=== PATIENT | male | born 1940 | race Caucasian/White ===

== ENCOUNTER 2016-12-28 07:27 | Day surgery (SDC) | payer BC ==
[2016-12-27 13:47] VITALS: BMI 24.7
[2016-12-28] MEDS ORDERED: MIDAZOLAM HCL 2 MG/2 ML SINGLE DOSE VIAL ONE ×2 (08:57→09:19)
[2016-12-28] MEDS ORDERED: PROPOFOL 20 ML ONE ×2 (08:58)
[2016-12-28] MEDS ORDERED: SUCCINYLCHOLINE CHLORIDE 200 MG/10 ML VIAL ONE (08:58)
[2016-12-28] MEDS ORDERED: ceFAZolin SODIUM 1 GM VIAL IVPB ONE (09:15)
[2016-12-28] MEDS ORDERED: ceFAZolin SODIUM 1 GM VIAL ONE (09:18)
[2016-12-28] MEDS ORDERED: GENTAMICIN SO4 80 MG/2 ML VIAL IVPB ONE (09:20)
[2016-12-28] MEDS ORDERED: GENTAMICIN SO4 80 MG/2 ML VIAL ONE (09:21)
[2016-12-28] MEDS ORDERED: oxyCODONE HCL 5 MG TABLET PO PRN (10:21)
--- NOTE | 2016-12-28 10:25 | OP ---
Operative Note - Note: Operative Date: 12/28/16 Pre-Operative Diagnosis: BPH, bladder stones Operation: cysto/laser litho bladder stones, bipolar TURVP Findings: Trilobar prostate hyperplasia, bladder stones (large) multiple Post-Operative Diagnosis: Same as Pre-op Surgeon: Jean-Claude Miguel Anesthesia: Spinal Specimens Removed: stones Estimated Blood Loss (mls): 25 Operative Report Dictated: Yes
[2016-12-28] MEDS ORDERED: ELECTROLYTE-148 SOLN 1,000 ML IV SCH (10:30)
[2016-12-28 11:23] VITALS: TEMP 97.6
[2016-12-28 13:07] VITALS: BP 140/78; PULSE 72
--- NOTE | 2016-12-28 13:33 | OP ---
DATE OF OPERATION: 12/28/2016 PREOPERATIVE DIAGNOSIS: Benign prostatic hypertrophy and bladder stones. POSTOPERATIVE DIAGNOSIS: Benign prostatic hypertrophy and bladder stones. PROCEDURE PERFORMED: Cystoscopy, laser lithotripsy of bladder stones and partial transurethral vaporization of prostate. SURGEON: Mason Mejía MD INDICATIONS: The patient is a 76-year-old male with recurrent bladder stones. He was treated partially in the past with stones, scheduled for repeat laser lithotripsy of stones and repeat partial TURP. With discussed the risk of bleeding, infection, impotence, incontinence, scar tissue formation, need for additional procedures due to very large prostate, however, he understood this and elected to undergo this fashion as opposed to an open prostatectomy. PROCEDURE IN DETAIL: The patient was taken to the OR and placed supine on the operating table. cabin worker administered and spinal anesthesia was given. He was prepped and draped in the dorsal lithotomy position. He was given 1 g of Ancef and 80 mg of gentamicin. The resectoscope was inserted into the urethra without difficulty. Anterior urethra was normal. Prostatically, it was 4 cm and visually occlusive with an enlarged medium bar with evidence of partial TURP. At this point multiple stones were noted in the bladder. Attention was turned to the stones. The stones ere pulverized into fine dust and 3-4 mm fragments with a . All stone fragments were removed and sent to Pathology for analysis. At this point then using the Olympus bipolar loop the median lobe tissue was vaporized until an open channel was created. All bleeding sites were fulgurated. Resectoscope was then removed and a 24-Wolof Gautam was then placed to straight drainage. [place]-tinged urine was retrieved. The patient was then woken from anesthesia and transferred to the recovery in stable condition. There were no complications. ESTIMATED BLOOD LOSS: Minimal. MASON MEÍJA M.D. [id number]
--- NOTE | 2016-12-29 08:34 | PATH ---
Surgical Pathology Report Patient Name: ARIADNE GEE [facility]. Rec. #: [id number] /Age/Gender: 1940 (Age: 76) / M Account: [id number] Location: [facility] SURGICAL Taken: 12/28/2016 Received: 12/28/2016 Reported: 12/29/2016 Physicians: Jean-Claude Miguel M.D. Specimen(s) Received BLADDER STONE Clinical History BPH, LUTS, bladder stone Final Diagnosis BLADDER STONE, EXTRACTION: CALCULI SUBMITTED FOR CHEMICAL ANALYSIS (gross only). Electronically Signed Von Sharma M.D. Gross Description Received fresh labeled "bladder stone," is a 1.2 x 1.2 x 0.4 cm aggregate of العلي, irregular to fragmented calculi which are sent for chemical analysis. /12/28/201612/28/2016
== END 2016-12-28 13:10 | disposition home or self-care (01) ==
LOC: JASU-SURG 07:27
PROVIDERS: ATTEND Urology
PROC: 0TCB8ZZ Extirpation of Matter from Bladder, Via Natural or Artificial Opening Endoscopic (ICD-10-PCS; principal; 2016-12-28 09:00)
PROC: 0VT08ZZ Resection of Prostate, Via Natural or Artificial Opening Endoscopic (ICD-10-PCS; 2016-12-28 09:00)
PROC: 0TJB8ZZ Inspection of Bladder, Via Natural or Artificial Opening Endoscopic (ICD-10-PCS; 2016-12-28 09:00)
DX: N40.1 Benign prostatic hyperplasia with lower urinary tract symptoms (principal); N21.0 Calculus in bladder
CPT/HCPCS: 36415; 82360; 88300-TC; 94760

== ENCOUNTER 2018-12-26 21:30 | Emergency (ER) | payer BC ==
[2018-12-26 22:02] VITALS: BP 136/78; PULSE 89; TEMP 99.2; BMI 24.7
--- NOTE | 2018-12-26 22:16 | PDOC ---
Documentation entered by Lesli Whitaker SCRIBE, acting as scribe for Laisha Trinidad MD. Laisha Trinidad MD: This documentation has been prepared by the [place] [employer], SCRIBE, under my direction and personally reviewed by me in its entirety. I confirm that the documentation accurately reflects all work, treatment, procedures, and medical decision making performed by me. History of Present Illness - General Chief Complaint: Urinary Problem Stated Complaint: URINARY RETENTION Time Seen by Provider: 12/26/18 21:43 History Source: Patient Exam Limitations: No Limitations - History of Present Illness Initial Comments: 12/26/18 21:58 The patient is a 78 year old male with a significant past medical history of prostate ca, hypertension, hyperlipidemia and chronic low back pain who presents to the emergency department with urinary retention since earlier today. The patient states that he has had an ongoing issue with urinary retention by which he had a reyes in place for the past 10 days. He states that today, he has a cystoscopy procedure done by which there were notes stones. The patient states that the reyes was not placed back in and he has been unable to urinate since. He states that he came to the ED to get a reyes placed so he can get some relief. The patient denies any fever, chills, nausea, vomiting, diarrhea, constipation or other urinary symptoms. He denies any chest pain, shortness of breath, headache or dizziness. The patient denies any other complaints. PAST MEDICAL HISTORY: prostate ca, hypertension, hyperlipidemia and chronic low back pain PAST SURGICAL HISTORY: no significant history FAMILY HISTORY: no pertinent history SOCIAL HISTORY: Pt lives with family and is employed. MEDICATIONS: reviewed ALLERGIES: As per nursing notes General: No fevers or chills, no weakness, no weight loss HEENT: No change in vision. No sore throat,. No ear pain CardioVascular: No chest pain or shortness of breath Respiratory:No cough, or wheezing. Gastrointestinal: no nausea, vomiting, diarrhea or constipation, No rectal bleeding Genitourinary: (+) urinary retention. No dysuria, hematuria, or frequency Musculoskeletal: No joint or muscle pain or swelling Neurologic: No headache, vertigo, dizziness or loss of consciousness Psychiatric: nor depression Skin: No rashes or easy bruising Endocrine: no increased thirst or abnormal weight change Allergic: no skin or latex allergy All other systems reviewed and normal GENERAL: The patient is awake, alert, and fully oriented, in no acute distress. HEAD: Normal with no signs of trauma. EYES: Pupils equal, round and reactive to light, extraocular movements intact, sclera anicteric, conjunctiva clear. Abdomen: (+)Exam post reyes insertion. No abdominal or suprapubic tenderness. No flank pain. Soft, nondistended, normal bowel sounds. EXTREMITIES: Normal range of motion, no edema. NEUROLOGICAL: Normal speech, normal gait. No CVA tenderness. PSYCH: Normal mood, normal affect. SKIN: Warm, Dry, normal turgor, no rashes or lesions noted. 12/26/18 22:14 Assessment and plan: This is a 78-year-old male who comes in complaining of urinary retention. Patient had a Reyes placed with approximately 1300 mL or urine. Patient is already on Bactrim. Patient discharged home with a leg bag will follow-up with his urologist in the morning 12/26/18 22:14 Past History - Past Medical History Allergies/Adverse Reactions: Allergies Allergy/AdvReac Type Severity Reaction Status Date / Time No Known Drug Allergies Allergy Verified 12/27/16 13:51 Home Medications: Ambulatory Orders Cholecalciferol (Vitamin D3) [Vitamin D3] 2,000 unit PO DAILY 08/11/15 Red Yeast Rice 600 mg PO DAILY 08/11/15 [place]-3/Dha/Epa/Fish Oil [Fish Oil 1,000 mg Softgel] 1,000 mg PO DAILY 12/27/16 Sulfamethoxazole/Trimethoprim [Bactrim Ds Tablet] 1 each PO BID 12/26/18 Anemia: No Asthma: No Cancer: Yes (PROSTATE) Cardiac Disorders: (AORTIC ROOT DILATION) CVA: No COPD: No Dementia: No Diabetes: No GI Disorders: No Disorders: No HTN: Yes ("NOT TAKING MEDS") Hypercholesterolemia: Yes ("NOT TAKING MEDS") Liver Disease: No Seizures: No Thyroid Disease: No - Surgical History Abdominal Surgery: Yes (HERNIA REPAIR A CHILD) - Immunization History Immunization Up to Date: Yes - Suicide/Smoking/Psychosocial Hx Smoking History: Never smoked Have you smoked in the past 12 months: No Hx Alcohol Use: Yes (WINE DAILY) Drug/Substance Use Hx: No Substance Use Type: Alcohol Hx Substance Use Treatment: No *Physical Exam - Vital Signs Last Vital Signs Temp Pulse Resp BP Pulse Ox 99.2 F 89 16 136/78 95 12/26/18 21:31 12/26/18 21:31 12/26/18 21:31 12/26/18 21:31 12/26/18 21:31 *DC/Admit/Observation/Transfer Diagnosis at time of Disposition: Urinary retention, Prostate enlargement - Discharge Dispostion Disposition: HOME Condition at time of disposition: Good Decision to Admit order: No - Referrals Referrals: Jean-Claude Miguel MD [Primary Care Provider] - - Patient Instructions Additional Instructions: Continue your antibiotics as prescribed. Call your urologist in the morning and see if your urologist wants you to take the antibiotics beyond the 2 doses you were given. Return to the emergency department immediately with ANY new, persistent or worsening symptoms. Continue any medications as previously prescribed by your physician. You should follow up with your primary doctor as soon as possible regarding today's emergency department visit. . Please make sure your doctor reviews the results of your emergency evaluation. Thank you for coming to the Emergency Department today for your care. It was a pleasure to see you today. Please note that your evaluation is INCOMPLETE until you follow-up with your doctor. - Post Discharge Activity
== END 2018-12-26 22:20 | disposition home or self-care (01) ==
LOC: FER 21:30
PROC: 0T9B70Z Drainage of Bladder with Drainage Device, Via Natural or Artificial Opening (ICD-10-PCS; principal; 2018-12-26)
DX: R33.9 Retention of urine, unspecified (principal); N40.0 Benign prostatic hyperplasia without lower urinary tract symptoms; I10 Essential (primary) hypertension; E78.5 Hyperlipidemia, unspecified; M54.5 Low back pain; G89.29 Other chronic pain; Z85.46 Personal history of malignant neoplasm of prostate
CPT/HCPCS: 81003; 81015; 87086; 87186; 99283-25

== ENCOUNTER 2019-01-03 13:16 | Inpatient (IN) | payer BC ==
--- NOTE | 2019-01-03 13:21 | PDOC ---
Rapid Medical Evaluation Medical Evaluation: Allergies Allergy/AdvReac Type Severity Reaction Status Date / Time No Known Drug Allergies Allergy Verified 12/26/18 22:16 01/03/19 13:19 HPI: Hematuria from indwelling reyes PE: ambulates, no gross deficits ORDERS: CBC, CMP, Coagulation studies, Type and Screen. Discharge Disposition - Diagnosis Gross hematuria - Referrals - Patient Instructions - Post Discharge Activity
[2019-01-03 14:20] LABS: BASO % 1.2 % (0-2.0); EOS % 0.1 % (0-4.5); HEMATOCRIT 36.8 % (35.4-49); HEMOGLOBIN 12.5 GM/dL (11.7-16.9); LYMPH % 9.7 % (8-40); MCH 32.2 pg (25.7-33.7); MEAN CELL VOLUME 94.8 fl (80-96); MEAN PLT VOLUME 7.9 fl (7.5-11.1); MONO % 6.8 % (3.8-10.2); NEUT % 82.2 % (42.8-82.8); PLATELET COUNT 231 K/MM3 (134-434); RBC 3.88 M/mm3 (4.00-5.60); RDW 17.4 % (11.9-15.9)
--- NOTE | 2019-01-03 14:21 | PDOC ---
History of Present Illness - General Chief Complaint: Pain Stated Complaint: Urinary Catheter Problem Time Seen by Provider: 01/03/19 13:21 - History of Present Illness Initial Comments: Mr. Liz is a 78 y/o M with hx HTN, HLD, prostate cancer presenting with gross hematuria from his indwelling reyes catheter as well as urinary obstruction since 1100 today. He reports 10/10 pain and pressure in his bladder. He reports that he has had urinary obstructions in the past, and that those times they have needed to replace the reyes. He is follow by urology (Dr. Turner) and is scheduled for bladder stone removal surgery next week. He denies any fever, chills, change in appetite, nausea, vomiting, fatigue, night sweats, dysuria, shortness of breath, chest pain. Past History - Travel Traveled outside of the country in the last 30 days: No - Past Medical History Allergies/Adverse Reactions: Allergies Allergy/AdvReac Type Severity Reaction Status Date / Time No Known Drug Allergies Allergy Verified 01/03/19 13:19 Home Medications: Ambulatory Orders Cefuroxime Axetil [Ceftin -] 500 mg PO Q12H #20 tablet 01/04/19 Anemia: No Asthma: No Cancer: Yes (PROSTATE) Cardiac Disorders: (AORTIC ROOT DILATION) CVA: No COPD: No Dementia: No Diabetes: No GI Disorders: No Disorders: No HTN: Yes ("NOT TAKING MEDS") Hypercholesterolemia: Yes ("NOT TAKING MEDS") Liver Disease: No Seizures: No Thyroid Disease: No - Surgical History Abdominal Surgery: Yes (HERNIA REPAIR A CHILD) - Immunization History Immunization Up to Date: Yes - Suicide/Smoking/Psychosocial Hx Smoking History: Never smoked Have you smoked in the past 12 months: No Hx Alcohol Use: Yes (WINE DAILY) Drug/Substance Use Hx: No Substance Use Type: Alcohol Hx Substance Use Treatment: No Review of Systems - Review of Systems Constitutional: Yes: See HPI. No: Chills, Diaphoresis, Fever HEENTM: Yes: See HPI. No: Eye Pain, Blurred Vision Respiratory: Yes: See HPI. No: Cough, Shortness of Breath Cardiac (ROS): Yes: See HPI. No: Chest Pain, Edema, Palpitations ABD/GI: Yes: See HPI. No: Abdominal Distended, Abd. Pain w/ defecation, Blood Streaked Bowels, Constipated, Diarrhea, Nausea, Vomiting : Yes: See HPI, Hematuria, Pain (Pain, pressure above groin over bladder). No : Burning, Dysuria, Discharge, Frequency, Flank Pain *Physical Exam - Vital Signs Last Vital Signs Temp Pulse Resp BP Pulse Ox 98.1 F 110 H 20 145/96 98 01/03/19 13:23 01/03/19 13:23 01/03/19 13:23 01/03/19 13:23 01/03/19 13:23 - Physical Exam General Appearance: Yes: Nourished, Appropriately Dressed, Apparent Distress, Moderate Distress HEENT: positive: EOMI, CARLI Neck: positive: Trachea midline Respiratory/Chest: positive: Lungs Clear, Normal Breath Sounds. negative: Chest Tender, Respiratory Distress Cardiovascular: positive: Regular Rhythm, Regular Rate, S1, S2. negative: JVD, Murmur Gastrointestinal/Abdominal: positive: Normal Bowel Sounds, Flat, Soft. negative : Tender, Organomegaly, Increased Bowel Sounds Male Genitalia: positive: normal genitalia. negative: discharge, testicular tenderness, testicular mass, epididymus tender ED Treatment Course - LABORATORY CBC & Chemistry Diagram: 01/04/19 06:45 01/04/19 06:45 Medical Decision Making - Medical Decision Making 01/03/19 16:33 78 y/o M with hx BPH and indwelling catheter presenting for gross hematuria and urinary obstruction. His urologist is Dr. Turner ([phone]). Plan to consult Dr. Turner regarding replacing the reyes catheter given plan for bladder stone removal surgery next week. Plan: Consult with Dr. Turner, his urologist Likely replacement of reyes catheter to relieve obstruction. Dispo: Plan for discharge upon reyes catheter replacement if urinary obstruction resolved --- Reyes catheter replaced without incident after consultation with Dr. Turner's partner Dr. Muller. Immediate return of approx 300cc bloody urine. Plan for outpatient follow up with Dr. Turner Sunday @ 9AM. Ultrasound resident noted bilateral hydronephrosis with significant clots in the bladder. Plan to again consult Dr. Turner's practice with likely admission. Dr. Muller in agreement with plan to admit. Will admit to Dr. Meraz and urology will see him as a consult. *DC/Admit/Observation/Transfer Diagnosis at time of Disposition: Gross hematuria - Discharge Dispostion Disposition: HOME Condition at time of disposition: Good - Referrals - Patient Instructions - Post Discharge Activity
[2019-01-03 14:28] LABS: INR 1.12 (0.83-1.09); PROTHROMBIN TIME (PATIENT) 13.2 SEC (9.7-13.0)
[2019-01-03 14:44] LABS: ALBUMIN 3.4 g/dl (3.4-5.0); BILIRUBIN,TOTAL 0.5 mg/dL (0.2-1); BLOOD UREA NITROGEN 15.8 mg/dL (7-18); CALCIUM 8.3 mg/dL (8.5-10.1); POTASSIUM 4.1 mmol/L (3.5-5.1); TOT PROT 6.3 g/dl (6.4-8.2)
[2019-01-03] MEDS ORDERED: morphine CARPU-JECT 4 MG/1 ML DISP.SYRIN IVPUSH ONE (15:00)
[2019-01-03] MEDS ORDERED: LIDOCAINE HCL 2% JELLY 10 ML CARTRIDGE ONE (15:24)
[2019-01-03] MEDS ORDERED: SODIUM CHLORIDE 1,000 ML IV SCH (16:45)
[2019-01-03] MEDS ORDERED: CEFTRIAXONE 1 GM/50 ML BAG ONE (16:52)
--- NOTE | 2019-01-03 16:53 | PDOC ---
Documentation entered by Gypsy Suero SCRIBE, acting as scribe for Katelyn Conti MD. Katelyn Conti MD: This documentation has been prepared by the [place], SCRIBE, under my direction and personally reviewed by me in its entirety. I confirm that the documentation accurately reflects all work, treatment, procedures, and medical decision making performed by me. Attending Attestation - Resident Resident Name: James Tracy - ED Attending Attestation I have performed the following: I have examined & evaluated the patient, The case was reviewed & discussed with the resident, I agree w/resident's findings & plan, Exceptions are as noted - HPI HPI: 01/03/19 16:28 The patient is a 78 year old male, who presents to the emergency department for evaluation of blood in his reyes. The patient reports several incidences of bloody urine which usually subsides on its own beginning about 2 weeks ago. He reports seeing Dr. Miguel this past Sunday where a reyes was placed. The patient notes around 8:30 this morning he emptied his reyes which displayed normal urine color. He then noticed blood in the bag around 8:45. The patient complains of tenderness to the suprapubic area. Of note, the patient is scheduled for surgery on 01/14 for bladder stone removal. urologist: Lamont - Physicial Exam PE: 01/03/19 16:29 GENERAL: The patient is in no acute distress. NECK: Normal range of motion, supple without lymphadenopathy, JVD, or masses. LUNGS: Breath sounds equal, clear to auscultation bilaterally. No wheezes, and no crackles. HEART:Regular rate and rhythm, normal S1 and S2 without murmur, rub or gallop. ABDOMEN: Soft, non-tender, normoactive bowel sounds. No guarding, no rebound. No masses palpable.\ GENITOURINARY: (+)Reyes bloody with urine, no clots, 500cc NEUROLOGICAL: Cranial nerves II through XII grossly intact. Normal speech. No focal neurological deficits. SKIN: Warm, Dry, normal turgor, no rashes or lesions noted. - Medical Decision Making 01/03/19 16:33 78 yo M multiple reyes cathether placement over the past 2 weeks Pt reports that he emptied his reyes bag at approximately 8:30 After this, he notes blood in the urine Pt after this noted that he was unable to void He increasingly became uncomfortable due to the inability to void 01/03/19 16:46 Reyes cathether replaced Return of bloody urine No clots seen in urine bag POCUS Renal US - Bladder distention, clots in bladder, moderate hydronephrosis Call placed to Dr. Small Will admit May need CBI Clinical impression: gross hematuria, initial presentation 01/03/19 18:44 EKG - SR rate of 107 bpm, LAD, no st elevation or depression, t waves inverted v2, flattened v3, otherwise upright, intervals nml
[2019-01-03] MEDS ORDERED: PNEUMOC 13-VAL CONJ-DIP CRM/PF 0.5 ML DISP.SYRIN IM ONE (22:03)
[2019-01-03 22:15] VITALS: BMI 24.5
--- NOTE | 2019-01-03 22:48 | HP ---
Admitting History and Physical - Past Medical History Renal/: Yes: BPH, Other - Smoking History Smoking history: Never smoked Have you smoked in the past 12 months: No - Alcohol/Substance Use Hx Alcohol Use: Yes (WINE DAILY) Home Medications - Allergies Allergies/Adverse Reactions: Allergies Allergy/AdvReac Type Severity Reaction Status Date / Time No Known Drug Allergies Allergy Verified 01/03/19 13:19 - Home Medications Home Medications: Ambulatory Orders NK [No Known Home Medication] 01/03/19 Physical Examination Vital Signs: Vital Signs Temperature 98.2 F 01/03/19 21:39 Pulse Rate 103 H 01/03/19 21:39 Respiratory Rate 18 01/03/19 21:39 Blood Pressure 133/86 01/03/19 21:39 O2 Sat by Pulse Oximetry (%) 98 01/03/19 17:25 Labs: CBC, BMP 01/03/19 13:56 01/03/19 13:56
[2019-01-03] MEDS ORDERED: ONDANSETRON 4 MG/2 ML VIAL IVPUSH PRN (22:50)
[2019-01-03] MEDS ORDERED: MORPHINE SULFATE 2 MG/ML VIAL IVPUSH PRN (22:52)
[2019-01-03] MEDS ORDERED: DEXTROSE 5%-0.45% SALINE 1,000 ML IV SCH (23:00)
[2019-01-04] MEDS ORDERED: MELATONIN 5 MG TABLETS PO ONE (01:00)
[2019-01-04 08:23] LABS: BASO % 1.9 % (0-2.0); EOS % 0.8 % (0-4.5); HEMATOCRIT 33.1 % (35.4-49); HEMOGLOBIN 11.4 GM/dL (11.7-16.9); LYMPH % 20.3 % (8-40); MCH 33.1 pg (25.7-33.7); MCHC 34.5 g/dl (32.0-35.9); MEAN CELL VOLUME 95.8 fl (80-96); MEAN PLT VOLUME 8.2 fl (7.5-11.1); MONO % 8.9 % (3.8-10.2); NEUT % 68.1 % (42.8-82.8); RBC 3.45 M/mm3 (4.00-5.60); RDW 17.5 % (11.9-15.9); WHITE BLOOD COUNT 7.6 K/mm3 (4.0-10.0)
[2019-01-04] MEDS ORDERED: TAMSULOSIN HCL 0.4 MG CAP PO SCH (08:30)
[2019-01-04 08:59] LABS: BILIRUBIN,TOTAL 0.7 mg/dL (0.2-1); BLOOD UREA NITROGEN 13.1 mg/dL (7-18); CALCIUM 7.9 mg/dL (8.5-10.1); CREATININE 0.8 mg/dL (0.55-1.3); POTASSIUM 4.2 mmol/L (3.5-5.1); TOT PROT 5.6 g/dl (6.4-8.2)
[2019-01-04 09:15] LABS: PLATELET COUNT 197 K/MM3 (134-434)
[2019-01-04] MEDS ORDERED: HEPARIN NA (PORCINE) 5,000 UNITS/ML 1ML VIAL SQ SCH (10:00)
[2019-01-04] MEDS ORDERED: CEFTRIAXONE 1 GM in DEXTROSE 5%-WATER - 50 ML IVPB SCH (10:00)
[2019-01-04] MEDS ORDERED: cefTRIAXone SODIUM 1 GM VIAL ONE (10:25)
[2019-01-04] MEDS ORDERED: DEXTROSE 5%-WATER - 50 ML IVPB ONE (10:25)
--- NOTE | 2019-01-04 16:19 | CON.GU ---
Consult Consult Specialty:: Referred by:: ED Reason for Consultation:: gross hematuria - History of Present Illness Chief Complaint: gross hematuria History of Present Illness: 78 year old male with a history of BPH and bladder stones with an indwelling reyes cath scheduled for outpatient procedure on 01/14/19 who present to the ER with clot retention. A 20 Fr reyes cath was reinserted. Today his urine is sushil in color, and he is comfortable. Creatinine is normal. WBC is decreased from admission and normal - History Source History Provided By: Patient, Medical Record Limitations to Obtaining History: No Limitations - Past Medical History Renal/: Yes: BPH, Other - Alcohol/Substance Use Hx Alcohol Use: Yes (WINE DAILY) - Smoking History Smoking history: Never smoked Have you smoked in the past 12 months: No Home Medications - Allergies Allergies/Adverse Reactions: Allergies Allergy/AdvReac Type Severity Reaction Status Date / Time No Known Drug Allergies Allergy Verified 01/03/19 13:19 - Home Medications Home Medications: Ambulatory Orders NK [No Known Home Medication] 01/03/19 Review of Systems - Review of Systems Constitutional: denies: Chills, Fever Genitourinary: reports: Dysuria, Frequency, Hematuria Physical Exam- Vital Signs: Vital Signs Temperature 99.2 F 01/04/19 14:00 Pulse Rate 95 H 01/04/19 14:00 Respiratory Rate 18 01/04/19 14:00 Blood Pressure 148/66 01/04/19 14:00 O2 Sat by Pulse Oximetry (%) 100 01/04/19 02:24 Renal/: Yes: Reyes Present, Hematuria. No: Bladder Distention, CVA Tenderness - Left, CVA Tenderness - Right Labs: CBC, BMP 01/04/19 06:45 01/04/19 06:45 Imaging - Results Cat Scan: Report Reviewed Problem List - Problems (1) Gross hematuria Assessment/Plan: I irrigated the reyes cath to clear. It is draining well and the patient wishes to go home. Discharge on po abx with follow up with Dr. Miguel on Code(s): R31.0 - GROSS HEMATURIA (2) Prostate enlargement Code(s): N40.0 - BENIGN PROSTATIC HYPERPLASIA WITHOUT LOWER URINRY TRACT SYMP (3) Urinary retention Code(s): R33.9 - RETENTION OF URINE, UNSPECIFIED
[2019-01-04 17:24] VITALS: BP 133/77; PULSE 99; TEMP 98.6
--- NOTE | 2019-01-05 13:38 | EKG ---
Test Reason : Blood Pressure : / mmHG Vent. Rate : 107 BPM Atrial Rate : 107 BPM P-R Int : 198 ms QRS Dur : 082 ms QT Int : 338 ms P-R-T Axes : 053 -51 059 degrees QTc Int : 451 ms SINUS TACHYCARDIA LEFT ATRIAL ENLARGEMENT LEFT ANTERIOR FASCICULAR BLOCK POSSIBLE SEPTAL INFARCT ABNORMAL ECG NO PREVIOUS ECGS AVAILABLE Confirmed by MD MIKE, MARY ([id number]) on 01/05/2019 1:37:31 PM Referred By: Confirmed By:MARY MCKEON MD
== END 2019-01-04 17:30 | disposition home or self-care (01) | DRG 699 ==
LOC: JER 13:16 → JERBED 16:42 → J8W 18:57
PROVIDERS: ADMIT Internal Medicine; ATTEND Internal Medicine
DX: N32.89 Other specified disorders of bladder (principal); N13.30 Unspecified hydronephrosis; R31.0 Gross hematuria; N40.0 Benign prostatic hyperplasia without lower urinary tract symptoms; R33.9 Retention of urine, unspecified; I10 Essential (primary) hypertension; E78.5 Hyperlipidemia, unspecified; C61 Malignant neoplasm of prostate; N21.0 Calculus in bladder
CPT/HCPCS: 36415; 80053; 81003; 81015; 85025; 85610; 86850; 86900; 86901; 87086; 90670; 93005; 93010; 99282-25; J7030

== ENCOUNTER 2019-01-14 06:03 | Day surgery (SDC) | payer BC ==
[2019-01-13 18:23] VITALS: BMI 24.7
[2019-01-14] MEDS ORDERED: MIDAZOLAM HCL 2 MG/2 ML SINGLE DOSE VIAL ONE ×2 (07:36→08:05)
[2019-01-14] MEDS ORDERED: VANCOMYCIN 1 GM in NS (PRE-DOCKED) 1,000 MG/250 ML IVPB ONE (07:54)
[2019-01-14] MEDS ORDERED: oxyCODONE HCL 5 MG TABLET PO PRN (08:49)
--- NOTE | 2019-01-14 08:52 | OP ---
Operative Note - Note: Operative Date: 01/14/19 Pre-Operative Diagnosis: BPH/retention/bladder stones Operation: cysto/laser litho/bipolar TURVP Post-Operative Diagnosis: Same as Pre-op Surgeon: Jean-Claude Miguel Anesthesia: Spinal Specimens Removed: stone, prostate chips Operative Report Dictated: Yes
[2019-01-14] MEDS ORDERED: DEXTROSE 5%-0.45% SALINE 1,000 ML IV SCH (09:00)
[2019-01-14] MEDS ORDERED: ONDANSETRON 4 MG/2 ML VIAL IVPUSH PRN (09:02)
[2019-01-14] MEDS ORDERED: LACTATED RINGERS SOLUTION 1,000 ML IV SCH (09:15)
--- NOTE | 2019-01-14 10:02 | OP ---
DATE OF OPERATION: 01/14/2019 PREOPERATIVE DIAGNOSIS: Benign prostatic hypertrophy, urinary retention, bladder stones. POSTOPERATIVE DIAGNOSIS: Benign prostatic hypertrophy, urinary retention, bladder stones. PROCEDURE: Cystoscopy, laser lithotripsy of bladder stones, bipolar transurethral vaporization of the prostate. SURGEON: Mason Mejía MD INDICATIONS: Patient is a 79-year-old male with history of BPH, status post TURP and laser lithotripsy of bladder stones in the past, now with recurrent retention and bladder stones. He was taken to the OR for planned laser lithotripsy and TURBT. Risks, benefits, and alternatives were discussed in detail as well as persistent urinary obstruction, recurrence of stones, potential need for additional procedures, as well as impotence, incontinence. DESCRIPTION OF PROCEDURE: After informed consent was obtained, patient was taken to the OR and placed supine on the operating table. Spinal anesthesia was given. He was prepped and draped in dorsal lithotomy position. He was given 1 g of vancomycin. The resectoscope was inserted with the visual obturator into the urethra without difficulty. Anterior urethra was normal. Prostatic urethra was 4 cm and visually occlusive. The bladder was visualized. Several stones were noted in the bladder, the largest approximately 1 cm in size. These were pulverized with 1000 micron laser fiber and irrigated out with Ellik evacuator and sent to Pathology for analysis. With no more stones noted, attention was turned to performing vaporization of prostate, and prostate tissue was vaporized circumferentially starting at the bladder neck and ending before the verumontanum to minimize the chance of incontinence until an open channel was created. All bleeding sites were cauterized and whatever prostate chips were removed with the Ellik evacuator were sent to Pathology for analysis. No injury occurred to the bladder or the ureteral orifices, which were seen with good efflux. Resectoscope was then removed, and a 24-[place] Gautam was then placed to straight drainage. [place]-tinged urine was retrieved. Patient was awoken from anesthesia and transferred to recovery room in stable condition. There were no complications. Estimated blood loss was minimal. MASON MEJÍA M.D. [id number]
[2019-01-14 13:20] VITALS: BP 138/74; PULSE 76; TEMP 97.9
--- NOTE | 2019-01-15 17:33 | PATH ---
Surgical Pathology Report Patient Name: ARIADNE GEE [facility]. Rec. #: [id number] /Age/Gender: 1940 (Age: 79) / M Account: [id number] Location: [facility] SURGICAL Taken: 01/14/2019 Received: 01/14/2019 Reported: 01/15/2019 Physicians: Jean-Claude Miguel M.D. Specimen(s) Received A: BLADDER STONE B: PROSTATE CHIPS Clinical History Bladder stones, BPH Final Diagnosis A. BLADDER STONES, LASER LITHOTRIPSY: BLADDER CALCULI. MACROSCOPIC DIAGNOSIS. B. PROSTATE CHIPS, BIPOLAR RESECTION OF PROSTATE: BENIGN PROSTATIC TISSUE WITH STROMAL FIBROSIS, DYSTROPHIC CALCIFICATIONS , AND MARKED CAUTERY ARTIFACT. Electronically Signed Patricia La M.D. Gross Description A. Received fresh labeled "bladder stones," is a 2.1 x 1.8 x 0.3 cm aggregate of العلي-brown, irregular to fragmented calculi. The specimen is sent for chemical analysis. B. Received in formalin labeled "prostate chips," is a 2.4 x 1.5 x 0.2 cm aggregate of العلي portions of rubbery tissue, consistent with prostate chips. The formalin is filtered and the specimen is entirely submitted in one cassette. /01/14/201901/14/2019
== END 2019-01-14 12:50 | disposition home or self-care (01) ==
LOC: JASU-SURG 06:03
PROVIDERS: ATTEND Urology
PROC: 0VT08ZZ Resection of Prostate, Via Natural or Artificial Opening Endoscopic (ICD-10-PCS; principal; 2019-01-14 07:30)
PROC: 0TCB8ZZ Extirpation of Matter from Bladder, Via Natural or Artificial Opening Endoscopic (ICD-10-PCS; 2019-01-14 07:30)
DX: N40.1 Benign prostatic hyperplasia with lower urinary tract symptoms (principal); R33.8 Other retention of urine; N21.0 Calculus in bladder
CPT/HCPCS: 36415; 82360; 88300-TC; 88305-TC; 94760

== ENCOUNTER 2020-02-29 10:05 | Emergency (ER) | payer BC ==
[2020-02-29] MEDS ORDERED: predniSONE 20 MG TABLET (UD) PO ONE (10:12)
[2020-02-29] MEDS ORDERED: diphenhydrAMINE HCL 25 MG CAPSULE (FP) PO ONE ×2 (10:12→10:42)
--- NOTE | 2020-02-29 10:21 | PDOC ---
History of Present Illness - General Chief Complaint: Hives Stated Complaint: generalized hives and redness itching Time Seen by Provider: 02/29/20 10:12 History Source: Patient, Family Exam Limitations: No Limitations - History of Present Illness Initial Comments: 02/29/20 10:15 HPI 80 y/o M with hx HTN, HLD, prostate cancer, bladder stones presenting with acute onset of diffuse pruritic rash over his body that developed and progressively worsened overnight. He took benadryl 25mg about 1 hour [employer]. He has diffuse pruritic rash over his back, torso, abdomen, upper and lower extremities. Pt states beginning about 1.5 weeks ago, he had acute onset of diffuse pruritic rash that progressed x 2-3 days, likely precipitated after cutting grass in the yard and maybe exposed himself to poison dawna/oak, where he subsequently went to urgent care on 02/21/20. there he was told he may have poison dawna dermatitis, rx'd steroids which he took and completed a 4 day course and instructed to continue taking benadryl for itch. Denies fever, chills, chest pain, SOB, palpitation, dizziness, weakness, N, V, D, abdominal pain, bladder and bowel problems, focal weakness/paresthesias, leg swelling/pain, rash. No sick contacts or travel. No new changes in medications. No suspicious food intake Allergies: None Past Medical History/PSH: as above Social history: Lives with family. No tobacco, ETOH or drug use. Meds: as documented in EMR Family history: noncontributory Review of systems Constitutional: no fevers or chills. No weakness HEENT: no headache or dizziness. No congestion. No visual/hearing disturbances. CVS: no cp or syncope. Resp: no sob. No cough. Gastrointestinal: no abdominal pain, nausea, vomiting, diarrhea. Genitourinary: no urinary sx, hematuria. MUSCULOSKELETAL: No joint pain and swelling. No neck or back pain. SKIN: +pruritis and + rash. No wounds. Hematologic: no easy bruising/bleeding. NEUROLOGIC: No headache, dizziness, LOC or altered mental status. No weakness, numbness or tingling. Psych: no anxiety or depression Allergic/Immunologic: no allergies All other systems reviewed and negative, or as documented in HPI. Physical exam General: Well appearing, awake and alert, NAD. HEENT: NCAT, PERRL, EOMI, clear conjunctiva, anicteric, moist mucus membranes, clear oropharynx, no oral lesions.. airway patent. no desquamatizing lesions on oral mucosa. Neck: neck supple, FROM Resp: CTAB, normal and even respirations, no respiratory distress CVS: RRR, no murmurs, 2+ peripheral pulses throughout, no peripheral edema Abdomen: soft, NTND, no rebound or guarding. : normal external genitalia, no rash on genitalia. Back: nontender, normal inspection and ROM MSK: no edema, OLSON x4, ROM intact. No clubbing or cyanosis. normal bulk and tone. Neuro: alert, oriented appropriately; no focal neurologic deficits, speech clear. Psych: Calm and cooperative Skin: warm and well perfused, cap refill <2 sec, normal color, +diffuse maculopapular and urticaric rash over his neck, back, torso, abdomen, chest, b/l groin and lower extremities. Past History - Medical History Allergies/Adverse Reactions: Allergies Allergy/AdvReac Type Severity Reaction Status Date / Time No Known Drug Allergies Allergy Verified 02/29/20 10:08 Home Medications: Ambulatory Orders Prednisone [Prednisone 50 MG TABLETS] 50 mg PO DAILY #5 tablet 02/29/20 predniSONE [Deltasone -] 10 mg PO DAILY #4 tablet 02/29/20 predniSONE [Deltasone -] 40 mg PO DAILY #12 tablet 02/29/20 Anemia: No Asthma: No Cancer: Yes (PROSTATE) Cardiac Disorders: (AORTIC ROOT DILATION) CVA: No COPD: No Dementia: No Diabetes: No GI Disorders: No Disorders: No HTN: Yes ("NOT TAKING MEDS") Hypercholesterolemia: Yes ("NOT TAKING MEDS") Liver Disease: No Seizures: No Thyroid Disease: No - Surgical History Abdominal Surgery: Yes (HERNIA REPAIR A CHILD) Appendectomy: No Cardiac Surgery: No Cholecystectomy: No Lung Surgery: No Neurologic Surgery: No Orthopedic Surgery: No - Immunization History Immunization Up to Date: Yes - Psycho-Social/Smoking History Smoking History: Never smoked Have you smoked in the past 12 months: No Information on smoking cessation initiated: No - Substance Abuse Hx (Audit-C & DAST Scrn) How often the patient has a drink containing alcohol: Monthly or less Number of drinks the patient has on a typical day: 1 or 2 How often the patient has six or more drinks on one occasion: Never Score: In Men: 4 or > Positive; In Women: 3 or > Positive: 1 Screen Result (Pos requires Nsg. Audit-10AR): Negative In the last yr the pt used illegal drug/Rx for NonMed reason: No Score: Yes response is considered Positive: 0 Screen Result (Positive result requires Nsg. DAST-10): Negative *Physical Exam - Vital Signs Last Vital Signs Temp Pulse Resp BP Pulse Ox 97.5 F L 118 H 18 151/96 99 02/29/20 10:07 02/29/20 10:07 02/29/20 10:07 02/29/20 10:07 02/29/20 10:07 Medical Decision Making - Medical Decision Making 02/29/20 10:21 Vital Signs Temp Pulse Resp BP Pulse Ox 97.5 F L 118 H 18 151/96 99 02/29/20 10:07 02/29/20 10:07 02/29/20 10:07 02/29/20 10:07 02/29/20 10:07 DDx. allergic reaction: hypersensitivity reaction, allergic reaction, anaphylaxis, hives/urticaria. drug rash. dermatitis. serum sickness. vasculitis. medication side effect. poison dawna/oak dermatitis. -No fevers or systemic findings, clinically well appearing. +tachycardic, however pt is very pruritic with quite a diffuse urticaric rash. airway patent, normal respirations, no distress no mucosal involvement so doubt SJS/TEN. airway patent, doubt anaphylaxis or Dress syndrome. - No evidence of erythema multiforme, SJS/TEN, Lyme, cellulitis, necrotizing fasciitis, no angioedema, meningococcemia, melissa mountain spotted fever. - given steroids, benadryl, with clinical improvement. VS wnl, stable, no hypotension. given his exposure risk and likely work in the yard, he was exposed to poison dawna/oak with the characteristic rash, pruritis, and rebound - 2 week prednisone taper for the poison dawna/oak/[place] dermatitis, as unclear quite which was exposed.. total washing and cleaning, proper hygiene pt eager for discharge repeat vs with improved HR, downtrending. does not appear toxic or infectious. likely from anxiety and the sig pruritis and pt administered oral regimen that takes time to start working Discharge: Does not appear at this time to be erythema multiforme, bullous, SJS, TEN; no evidence at this time to suggest RMSF or endocarditis or Lyme disease; patient looks well, nontoxic and is tolerating oral intake; no neurologic signs or symptoms; no headache or photophobia or neck pain; no ev of sepsis; question viral exanthem; afebrile; appropriate for initial o/p tx; d/w pt importance of f/u and pt agrees/understands; told pt to return to nearest ER immediately for any worsening sx incl but not limited to: fever, spreading rash, pain, sore throat, headache, dizziness, chest pain, trouble breathing, or any ssx concerning to the patient. I did d/w pt the aforementioned ddx as possibilities and pt understands to f/u even if better and to return to ER if un- changed/worse. Pt understands these instructions on d/c and is comfortable with discharge plan. 02/29/20 11:27 Discharge - Discharge Information Problems reviewed: Yes Clinical Impression/Diagnosis: Urticaria, Poison dawna dermatitis Condition: Improved Disposition: HOME - Admission No - Additional Discharge Information Prescriptions: predniSONE [Deltasone -] 10 mg PO DAILY #4 tablet predniSONE [Deltasone -] 40 mg PO DAILY #12 tablet Prednisone [Prednisone 50 MG TABLETS] 50 mg PO DAILY #5 tablet - Follow up/Referral - Patient Discharge Instructions Patient Printed Discharge Instructions: Urticaria (Alternative Therapy), Poison Dawna, Poison [place], Poison [place], DI for Poison [place] [facility], DI for Poison [place] [facility], DI for Hives Additional Instructions: Discharge for patients: Please follow-up with your primary doctor(s) within 2-3 days. Please avoid any known triggers of your allergies. We recommend you see an [employer] Worker - we have given you a list of allergists (check with your insurance before making any appointments). You were given a copy of the results from any tests performed today in the Emergency Department which have results available. Show these to your doctor(s). Some of the tests we sent may not have results yet so please call or have your doctor call the Emergency Department to follow up on all results. We have sent a prescription for prednisone to your pharmacy. Please pick it up as soon as possible and use as directed (take for a 2 week period given the poison dawna/oak/sumac dermatitis). Take Benadryl (also called diphenhydramine) 50mg every 6-8 hours as needed for further allergy symptoms (can be purchased without a prescription) - please note that Benadryl often causes drowsiness so please do not drive, make important decisions or operate machinery until you know how it will affect you. Please return to the Emergency Department right away if you have any worsening or new shortness of breath, changes in your voice, tightness/itching in your mouth/throat, swelling, severe hives, chest pain, high fever. There is a very small chance of a recurrence of the allergic reaction, typically in the next 24 hours. If you see the same symptoms (rash, trouble breathing, vomiting, etc) return, come back to the Emergency Department immediately. This is your steroid protocol/taper: take 50mg for 5 days starting Tomorrow after you complete that, take 40mg x 4 days then take 20mg x 4 days then complete with 10mg x 4 days this will be a 2.5 week taper to complete your treatment - Post Discharge Activity
[2020-02-29 10:39] VITALS: TEMP 97.5; BMI 24.7
[2020-02-29] MEDS ORDERED: predniSONE 20 MG TABLET (UD) ONE (10:44)
[2020-02-29 10:46] VITALS: BP 135/92; PULSE 114
== END 2020-02-29 10:54 | disposition home or self-care (01) ==
LOC: FER 10:05
DX: L50.9 Urticaria, unspecified (principal); L23.7 Allergic contact dermatitis due to plants, except food
CPT/HCPCS: 99283-25

== ENCOUNTER 2023-07-05 06:27 | Emergency (ER) | payer BC ==
[2023-07-05 06:35] VITALS: BP 124/73; PULSE 75; RESP 17; TEMP 97.7; BMI 22.7
[2023-07-05 08:19] LABS: HEMATOCRIT 39.7 % (35.4-49); HEMOGLOBIN 13.4 G/dL (11.7-16.9); MCH 32.9 pg (25.7-33.7); MCHC 33.8 g/dl (32.0-35.9); MEAN CELL VOLUME 97.3 fl (80-96); MEAN PLT VOLUME 8.5 fl (7.5-11.1); PLATELET COUNT 167.2 10^3/uL (134-434); RBC 4.08 10^6/uL (4.00-5.60); RDW 17.3 % (11.9-15.9)
[2023-07-05 08:57] LABS: ALBUMIN 3.9 g/dl (3.4-5.0); BILIRUBIN,TOTAL 0.8 mg/dl (0.2-1); CALCIUM 8.7 mg/dl (8.5-10.1); CREATININE 0.8 mg/dl (0.6-1.3); POTASSIUM 3.6 mmol/L (3.5-5.1); TOT PROT 5.9 g/dl (6.4-8.2); URIC ACID 4.8 mg/dl (2.6-7.2)
[2023-07-05 09:30] LABS: PLATELET ESTIMATE ADEQUATE
[2023-07-05] MEDS ORDERED: ACETAMINOPHEN 325 MG TABLET (FP) PO ONE (09:55)
[2023-07-05] MEDS ORDERED: ACETAMINOPHEN 325 MG TABLET (FP) ONE (09:58)
== END 2023-07-05 10:02 | disposition home or self-care (01) ==
LOC: FER 06:27
DX: M25.532 Pain in left wrist (principal); R22.32 Localized swelling, mass and lump, left upper limb
CPT/HCPCS: 36415; 73110-TC-LT-FY; 73130-TC-LT-FY; 80053; 84550; 85027; 85651; 99284-25